=== PATIENT | female | born 1995 | race Caucasian/White ===

== ENCOUNTER → 2018-04-17 11:07 | Outpatient (REF) | payer OTHER, SELFPAY ==
[2018-04-18 15:30] LABS: Chlamydia Result Negative; GC Result Negative; Specimen Description URINE
== END ==
LOC: LBN 11:07
PROVIDERS: PCP Pediatrics; Visit Provider Nurse Practitioner Women's Health
DX: Z11.3 Encounter for screening for infections with a predominantly sexual mode of transmission (principal)
CPT/HCPCS: 87491; 87591

== ENCOUNTER → 2018-04-19 02:37 | Outpatient (CLI) | payer OTHER, SELFPAY ==
--- NOTE | 2018-04-19 13:00 | DI.REPORT_ITS ---
SYMPTOM/DIAGNOSIS: IUD PLACEMENT, IRREGULAR BLEEDING, N92.6, Z30.431 PELVIC ULTRASOUND: The uterus is unremarkable in appearance with an IUD in place in the endometrial cavity. There is a small quantity of free fluid in the cul-de-sac which is nonspecific. The ovaries have a normal follicular appearance. The kidneys are unremarkable in appearance. CONCLUSION: Negative pelvic ultrasound.
== END ==
PROVIDERS: PCP Pediatrics; Visit Provider Nurse Practitioner Women's Health
DX: N92.6 Irregular menstruation, unspecified (principal); Z30.431 Encounter for routine checking of intrauterine contraceptive device
CPT/HCPCS: 76830; 76856